=== PATIENT | male | born 1975 | race Caucasian/White ===

== ENCOUNTER 2021-01-17 13:22 | Emergency (ER) | payer BC, OTHER ==
[2021-01-17 14:09] VITALS: BP 144/93; PULSE 82; TEMP 97.8; BMI 31.6
[2021-01-17] MEDS ORDERED: NAPROXEN 500 MG TABLET PO ONE (14:50)
[2021-01-17] MEDS ORDERED: NAPROXEN 500 MG TABLET ONE (14:51)
== END 2021-01-17 15:00 | disposition home or self-care (01) ==
LOC: JERFT 13:22
DX: S83.91XA Sprain of unspecified site of right knee, initial encounter (principal)
CPT/HCPCS: 73562-TC-RT-FY; 99284-25